=== PATIENT | female | born 1965 | race Caucasian/White ===

== ENCOUNTER 2019-06-01 21:05 | Emergency (ER) | payer MEDICAID ==
[2019-06-01] MEDS: ACETAMINOPHEN 500 MG TAB PO (23:40)
== END 2019-06-02 02:43 | disposition home or self-care (01) ==
LOC: FTE 06-02 02:43
DX: R51 Headache (principal); F07.81 Postconcussional syndrome
CPT/HCPCS: 70450; 70486; 99284-25